=== PATIENT | male | born 1975 | race American Indian/Alaskan Native ===

== ENCOUNTER 2017-01-02 15:49 | Emergency (ER) | payer SELFPAY ==
[2017-01-02 16:37] LABS: Basophils % (Auto) 0.9 % (0.0-1.8); Eosinophils % (Auto) 2.6 % (0.0-4.3); Hematocrit 40.5 % (35.5-45.6); Hemoglobin 13.2 gm/dl (11.8-15.2); Mean Corpuscular HGB Conc 33 % (32-34); Mean Corpuscular Hemoglobin 28 pg (28-32); Mean Corpuscular Volume 87 fl (84-94); Platelet Count 259 K/mm3 (140-440); Red Blood Count 4.67 M/mm3 (3.65-5.03); Red Cell Distribution Width 13.1 % (13.2-15.2); White Blood Count 7.6 K/mm3 (4.5-11.0)
[2017-01-02 16:51] LABS: Anion Gap 16 mmol/L; Blood Urea Nitrogen 11 mg/dL (9-20); Calcium 8.9 mg/dL (8.4-10.2); Carbon Dioxide 27 mmol/L (22-30); Chloride 102.4 mmol/L (98-107); Glucose 103 mg/dL (75-100); Potassium 3.8 mmol/L (3.6-5.0); Sodium 142 mmol/L (137-145)
[2017-01-02 21:36] VITALS: BP 142/102
[2017-01-02] MEDS ORDERED: NORVASC PO ONE (21:43)
--- NOTE | 2017-01-02 21:47 | Emergency Department Report ---
ED General Adult HPI - General Chief complaint: High BP Stated complaint: BP HIGH Time Seen by Provider: 01/02/17 21:38 Source: patient Mode of arrival: Ambulatory Limitations: No Limitations - History of Present Illness Initial comments: 41-year-old male with no significant past medical history presents with complaints of elevated blood pressure intermittent headache 1 month. Patient states he has been monitoring his blood pressure at [facility] [employer] and a neighbor has also been checking his blood pressure. It is typically in the 140s systolic and diastolic 90s to 100. Patient complaining of intermittent frontal head pressure 1 month. Headaches are typically worse in the evening times. At its worse headache is 8/10 in intensity. No aggravating or alleviating factors reported. No headache at this time. Patient attempting to use garlic pills without improvement. Mild nausea reported earlier but no reports of vomiting, blurred vision, neck pain, or focal weakness or numbness. Patient does not have a primary care doctor. Severity scale (0 -10): 0 - Related Data Previous Rx's Medication Instructions Recorded Last Taken Type Doxycycline [Vibramycin] 100 mg PO Q12HR #20 capsule 07/12/15 Unknown Rx Ibuprofen [Motrin] 600 mg PO Q8H PRN #30 tablet 07/12/15 Unknown Rx amLODIPine [Norvasc] 5 mg PO DAILY #30 tab 01/02/17 Unknown Rx Allergies Allergy/AdvReac Type Severity Reaction Status Date / Time No Known Allergies Allergy Verified 07/12/15 04:11 ED Review of Systems ROS: Stated complaint: BP HIGH Other details as noted in HPI Comment: All other systems reviewed and negative Other: Constitutional: No fevers chills Eyes: No eye pain visual changes ENT: No ear pain or throat pain Neck: Denies pain Respiratory: Denies cough wheezing shortness of breath Cardiovascular: Denies chest pain, palpitations, syncope GI: Denies abdominal pain, nausea, vomiting, diarrhea : Denies dysuria Musculoskeletal: Denies back pain, joint swelling Skin: Denies rash, lesions, erythema Neurologic: As per HPI Psychiatric: Denies suicidal ideation, hallucinations ED Past Medical Hx - Past Medical History Previous Medical History?: No - Surgical History Past Surgical History?: No - Social History Smoking Status: Never Smoker Substance Use Type: None - Medications Home Medications: Home Medications Medication Instructions Recorded Confirmed Last Taken Type Doxycycline [Vibramycin] 100 mg PO Q12HR #20 capsule 07/12/15 Unknown Rx Ibuprofen [Motrin] 600 mg PO Q8H PRN #30 tablet 07/12/15 Unknown Rx amLODIPine [Norvasc] 5 mg PO DAILY #30 tab 01/02/17 Unknown Rx ED Physical Exam - General Limitations: No Limitations - Other Other exam information: General: No limitations, patient is alert in no acute distress Head exam: Atraumatic, normocephalic Eyes exam: Normal appearance, pupils equal reactive to light, extraocular movements intact ENT: Moist mucous membrane, normal oropharynx Neck exam: Normal inspection, full range of motion, no meningismus nontender Respiratory exam: Clear to auscultation bilateral, no wheezes, rales, crackles Cardiovascular: Normal rate and rhythm, normal heart sounds Abdomen: Soft, nondistended, and nontender, with normal bowel sounds, no rebound, or guarding Extremity: Full range of motion normal inspection no deformity Back: Normal Inspection, full range of motion, no tenderness Neurologic: Alert, oriented x3, cranial nerves intact, no motor or sensory deficit, [id number] function intact Psychiatric: normal affect, normal mood Skin: Warm, dry, intact ED Course Vital Signs 01/02/17 01/02/17 01/02/17 15:54 21:33 21:36 Temperature 98.6 F 98.3 F Pulse Rate 94 H 70 Respiratory 16 Rate Blood Pressure 155/89 Blood Pressure 147/102 142/102 [Left] O2 Sat by Pulse 98 Oximetry - Reevaluation(s) Reevaluation #1: 01/02/17 21:46 Patient pain free. Norvasc 5 mg ordered for hypertension ED Medical Decision Making - Lab Data Result diagrams: 01/02/17 16:04 01/02/17 16:04 Lab Results 01/02/17 01/02/17 01/02/17 Range/Units 16:04 16:04 18:54 WBC 7.6 (4.5-11.0) K/mm3 RBC 4.67 (3.65-5.03) M/mm3 Hgb 13.2 (11.8-15.2) gm/dl Hct 40.5 (35.5-45.6) % MCV 87 (84-94) fl MCH 28 (28-32) pg MCHC 33 (32-34) % RDW 13.1 L (13.2-15.2) % Plt Count 259 (140-440) K/mm3 Lymph % (Auto) 27.3 (13.4-35.0) % Ellis % (Auto) 8.5 H (0.0-7.3) % Eos % (Auto) 2.6 (0.0-4.3) % Baso % (Auto) 0.9 (0.0-1.8) % Lymph # 2.1 (1.2-5.4) K/mm3 Ellis # 0.6 (0.0-0.8) K/mm3 Eos # 0.2 (0.0-0.4) K/mm3 Baso # 0.1 (0.0-0.1) K/mm3 Seg Neutrophils % 60.7 (40.0-70.0) % Seg Neutrophils # 4.6 (1.8-7.7) K/mm3 Sodium 142 (137-145) mmol/L Potassium 3.8 (3.6-5.0) mmol/L Chloride 102.4 (98-107) mmol/L Carbon Dioxide 27 (22-30) mmol/L Anion Gap 16 mmol/L BUN 11 (9-20) mg/dL Creatinine 1.0 (0.8-1.5) mg/dL Estimated GFR > 60 ml/min BUN/Creatinine Ratio 11.00 % Glucose 103 H (75-100) mg/dL Calcium 8.9 (8.4-10.2) mg/dL Troponin T < 0.010 < 0.010 (0.00-0.029) ng/mL - EKG Data -: EKG Interpreted by Me (sinys rhythm rate [address] elevation or T-wave inversion) - EKG Data When compared to previous EKG there are: previous EKG unavailable - Medical Decision Making Patient has no neurologic deficits. Pain free at this time with intermittent headache reported. Patient having elevated blood pressure 1 month and has not seen a primary care doctor. Patient be started on Norvasc for presumed new- onset hypertension. Close outpatient follow-up will be encouraged with a primary care doctor for further evaluation and treatment. - Differential Diagnosis hypertensive emergency, new onset hypertension, migraine, headache nos, Critical Care Time: No Critical care attestation.: If time is entered above; I have spent that time in minutes in the direct care of this critically ill patient, excluding procedure time. ED Disposition Clinical Impression: HTN (hypertension) Disposition: DC-01 TO HOME OR SELFCARE Is pt being admited?: No Does the pt Need Aspirin: No Condition: Stable Instructions: Hypertension (ED) Additional Instructions: Follow up with either the clinic with a primary care doctor provided. Take the medication as prescribed. Continue to monitor your blood pressure at home so that your primary care doctor may adjust your medication as necessary. Return if symptoms worsen. Take Motrin as needed for headache. Prescriptions: amLODIPine [Norvasc] 5 mg PO DAILY #30 tab Referrals: [facility] [Provider Group] - 3-5 Days SARINA POON MD [Staff Physician] - 3-5 Days Time of Disposition: 21:48
== END 2017-01-02 22:16 | disposition home or self-care (01) ==
LOC: ED 15:49
DX: I10 Essential (primary) hypertension (principal)
CPT/HCPCS: 36415; 80048; 84484; 85025; 93005; 93010; 99284